=== PATIENT | male | born 1980 ===

== ENCOUNTER → 2016-04-05 | Outpatient (REF) ==
[2016-04-09 23:14] LABS: .MEASLES IGG Positive (()); MUMPS VIRUS ANTIBODY,IGG Positive (()); RUBELLA AB IGG 4.37 OD Ratio (>1.09); RUBELLA IGG TORCH EIA Positive (())
[2016-04-10 17:16] LABS: .MEASLES IGG INDEX 4.86 OD Ratio (>1.09)
== END ==
LOC: COL.LAB 14:10
DX: Z02.89 Encounter for other administrative examinations (principal)